=== PATIENT | male | born 1995 ===

== ENCOUNTER 2019-09-03 12:52 | Outpatient (REF) | payer MEDICAID, SELFPAY ==
[2019-09-03 22:02] LABS: Abs Immature Grans 0.02 k/cumm (0.0-0.09); Absolute Basophil Count 0.08 k/cumm (0.0-0.2); Absolute Eosinophil Count 0.26 k/cumm (0.0-0.7); Absolute Lymphocyte Count 3.09 k/cumm (1.2-3.4); Absolute Monocyte Count 0.72 k/cumm (0.11-0.7); Absolute Neutrophil Count 4.41 k/cumm (1.2-6.7); Basophils % 0.9; HCT 49.6 % (40.0-50.0); HGB 16.9 g/dL (13.5-17.5); Immature Grans % 0.2; Mean Corp. HGB Concentration 34.1 g/dL (32.0-36.0); Mean Corpuscular Hemoglobin 30.7 pg (27.0-33.0); Mean Corpuscular Volume 90.2 fL (80-95); Mean Platelet Volume 10.1 fL (8.0-11.0); Monocytes % 8.4; Neutrophils % 51.5; Platelet Count 290 x1000/uL (130-400); RBC Distribution Width 12.8 % (11.8-14.1); White Blood Cell Count 8.58 k/cumm (4.4-10.8)
[2019-09-03 22:32] LABS: Hemoglobin A1C 5.5 % (4.5-6.2)
[2019-09-03 22:40] LABS: Vitamin D 25 Total 17.5 ng/ml (30-100)
[2019-09-03 23:00] LABS: ALT 47 U/L (16-63); Albumin 4.2 g/dL (3.4-5.0); Alkaline Phosphatase 69 U/L (46-116); Anion Gap 8.2 mmol/L (3-11); BUN 17 mg/dL (7-18); Bilirubin, Total 0.3 mg/dL (0.2-1.0); CO2 28.8 mmol/L (21.0-32.0); CREATININE 1.08 mg/dL (0.70-1.30); Chloride 102 mmol/L (98-107); Glucose 105 mg/dL (74-106); Magnesium 2.1 mg/dL (1.8-2.4); Potassium 4.4 mmol/L (3.5-5.1); Sodium 139 mmol/L (136-145); TSH (W/Ref FT4) 2.98 uIU/mL (0.36-3.74); Total Protein 7.5 g/dL (6.4-8.2); Vitamin B12 701 pg/mL (193-986)
[2019-09-18 16:35] LABS: AST 29 U/L (15-37)
== END 2019-09-03 13:12 ==
LOC: NCHCN 12:52
PROVIDERS: Visit Provider Nurse Practitioner Community Health
DX: F32.9 Major depressive disorder, single episode, unspecified (principal); J45.20 Mild intermittent asthma, uncomplicated; F17.210 Nicotine dependence, cigarettes, uncomplicated; R12 Heartburn; Z81.8 Family history of other mental and behavioral disorders
CPT/HCPCS: 80053; 82306; 82607; 83036; 83735; 84443; 85025